=== PATIENT | female | born 1975 ===

== ENCOUNTER 2022-05-01 03:58 | Inpatient (IN) ==
[2022-05-01] MEDS ORDERED: MORPHINE 2 MG/1 ML SYRINGE IV PRN (06:19)
[2022-05-01] MEDS ORDERED: ONDANSETRON 4 MG/2 ML VIAL IV PRN (07:37)
[2022-05-01] MEDS: PANTOPRAZOLE 40 MG TABLET PO SCH (08:18)
[2022-05-01 10:13] LABS: Risk Ratio 1.69; VLDL Cholesterol 13.2 MG/DL
[2022-05-01 10:24] LABS: Albumin 2.6 G/DL (3.4-5.0); Total Protein 6.2 G/DL (6.4-8.2)
[2022-05-01 10:24] LABS: PT Patient Result 11.4 SECS (10.1-12.1)
[2022-05-01] MEDS: INSULIN LISPRO 100 UNIT/ML SUBCUT SCH ×3 (11:57→20:21)
[2022-05-01] MEDS: ASPIRIN EC 81 MG TABLET PO SCH (11:58)
[2022-05-01 13:08] LABS: Glucose,Pleural Fluid 147 MG/DL; LDH,Body Fluid 159 U/L; Total Protein,Body Fluid 2.3 G/DL; Triglycerides,Body Fluid 19 MG/DL
[2022-05-01 13:11] LABS: Lymphocytes,Pleural Fluid 59 %; Monocytes,Pleural Fluid 30 %; Neutrophils,Pleural Fluid 11 %; RBC,Pleural Fluid < 1 T/CUMM
[2022-05-01] MEDS: hydrALAZINE 10 MG TABLET PO SCH ×2 (16:34→20:54)
[2022-05-01 18:34] LABS: Protein/Creatinine Ratio,Urine 5.4 RATIO
[2022-05-01] MEDS: METOPROLOL TARTRATE 25 MG TABLET PO SCH (20:54)
[2022-05-02 03:56] LABS: Basophils % 0.4 % (0.0-0.8); Eosinophils # 0.1 10*3/uL (0.0-0.87); Eosinophils % 1.4 % (0.00-10.9); Hematocrit 37.1 VOL% (35.7-47.0); Hemoglobin 11.5 GM/DL (12.0-16.0); Immature Granulocytes % 0.5 %; Immature Granulocytes Absolute 0.03 #; Lymphocytes # 0.7 10*3/uL (1.4-4.0); Lymphocytes % 11.8 % (21.3-54.2); Mean Corpuscular Volume 103.1 FL (87-102); Mean Platelet Volume 9.6 FL (9.6-12.0); Monocytes # 0.6 10*3/uL (0.11-0.8); Monocytes % 10.2 % (1.7-12.7); Neutrophils % 75.7 % (38.7-73.9); Platelet Count 206 T/CUMM (130-400); Red Cell Distribution Width 15.5 % (9.3-17.3); White Blood Count 5.7 T/CUMM (4-12)
[2022-05-02 04:24] LABS: Albumin 2.2 G/DL (3.4-5.0); Bilirubin,Total 0.4 MG/DL (0.20-1.00); Calcium 7.9 MG/DL (8.5-10.1); Osmolality,Calculated 307.5 MOS/KG (273-304); Potassium 5.4 MMOL/L (3.5-5.1); Total Protein 5.9 G/DL (6.4-8.2)
[2022-05-02] MEDS: LEVOTHYROXINE 75 MCG TABLET PO SCH (05:49)
[2022-05-02] MEDS ORDERED: SODIUM POLYSTYRENE SULFATE 15 GM/60 ML BOTTLE PO ONE (07:47)
[2022-05-02] MEDS: INSULIN LISPRO 100 UNIT/ML SUBCUT SCH ×4 (07:56→20:20)
[2022-05-02] MEDS: ISOSORBIDE MONONITRATE 30 MG TABLET PO SCH (09:06)
[2022-05-02] MEDS: PANTOPRAZOLE 40 MG TABLET PO SCH (09:06)
[2022-05-02] MEDS: hydrALAZINE 10 MG TABLET PO SCH ×3 (09:06→20:19)
[2022-05-02] MEDS: METOPROLOL TARTRATE 25 MG TABLET PO SCH ×2 (09:06→20:19)
[2022-05-02] MEDS: ASPIRIN EC 81 MG TABLET PO SCH (09:13)
[2022-05-02 09:32] LABS: Free T4 (Free Thyroxine) 0.74 NG/DL (0.76-1.46)
[2022-05-02 13:51] LABS: Calcium 7.6 MG/DL (8.5-10.1); Osmolality,Calculated 308.5 MOS/KG (273-304); Potassium 5.2 MMOL/L (3.5-5.1)
[2022-05-03 05:25] LABS: Basophils % 0.5 % (0.0-0.8); Eosinophils # 0.1 10*3/uL (0.0-0.87); Eosinophils % 2.2 % (0.00-10.9); Immature Granulocytes % 0.5 %; Immature Granulocytes Absolute 0.03 #; Lymphocytes # 0.7 10*3/uL (1.4-4.0); Lymphocytes % 11.9 % (21.3-54.2); Mean Corpuscular HGB Conc 30.6 GM/DL (32-36); Mean Corpuscular Volume 104.7 FL (87-102); Mean Platelet Volume 9.3 FL (9.6-12.0); Monocytes # 0.6 10*3/uL (0.11-0.8); Monocytes % 10.6 % (1.7-12.7); Neutrophils % 74.3 % (38.7-73.9); Platelet Count 206 T/CUMM (130-400); Red Blood Count 3.44 MC/CUMM (3.8-5.5); Red Cell Distribution Width 15.7 % (9.3-17.3)
[2022-05-03] MEDS: LEVOTHYROXINE 75 MCG TABLET PO SCH (06:03)
[2022-05-03 06:11] LABS: Calcium 7.6 MG/DL (8.5-10.1); Osmolality,Calculated 308.4 MOS/KG (273-304); Potassium 4.5 MMOL/L (3.5-5.1)
[2022-05-03] MEDS ORDERED: SODIUM BICARBONATE 50 MEQ/50 ML VIAL IV ONE (07:25)
[2022-05-03 08:08] VITALS: BP 105/73
[2022-05-03] MEDS: ASPIRIN EC 81 MG TABLET PO SCH (08:36)
[2022-05-03] MEDS: ISOSORBIDE MONONITRATE 30 MG TABLET PO SCH (08:37)
[2022-05-03] MEDS: METOPROLOL TARTRATE 25 MG TABLET PO SCH (08:38)
[2022-05-03] MEDS: hydrALAZINE 10 MG TABLET PO SCH (08:38)
[2022-05-03] MEDS: PANTOPRAZOLE 40 MG TABLET PO SCH (08:38)
[2022-05-03] MEDS: INSULIN LISPRO 100 UNIT/ML SUBCUT SCH ×2 (08:41→11:56)
[2022-05-03] MEDS ORDERED: SODIUM BICARB INJ 50 MEQ in IV BAG 1 EACH IV ONE (09:00)
[2022-05-03] MEDS ORDERED: INFLUENZA VIRUS VACCINE 0.5 ML SYRINGE IM ONE (11:04)
== END 2022-05-03 13:38 | disposition home health service (06) | DRG 280 ==
LOC: SUATTDRO 06:02 → N.TELES 06:02
PROVIDERS: ADMIT Internal Medicine; ATTEND Internal Medicine